=== PATIENT | male | born 1950 | race Caucasian/White ===

== ENCOUNTER → 2017-03-14 | Outpatient (CLI) | payer MEDICARE ==
[2017-03-14 12:25] LABS: Blood Urea Nitrogen 12 mg/dL (9-20); Non-African American GFR(MDRD) >60 (>60 ml/min/1.73 sqM)
== END | disposition home or self-care (01) ==
LOC: LABWHC1 11:44
PROVIDERS: ATTEND Orthopaedic Surgery Orthopaedic Surgery of the Spine
DX: Z01.812 Encounter for preprocedural laboratory examination (principal); N28.9 Disorder of kidney and ureter, unspecified
CPT/HCPCS: 36415; 82565; 84520

== ENCOUNTER → 2017-05-09 | Outpatient (CLI) | payer MEDICARE ==
[2017-05-09 14:39] LABS: EKG EKG PERFORMED
[2017-05-09 15:00] LABS: Basophils # (A) 0.1 k/uL (0-0.2); Basophils % (A) 1 %; CH 34.1; CHCM 34.2; Eosinophils # (A) 0.3 k/uL (0-0.7); Eosinophils % (A) 4 %; HCT 40.4 % (39.0-53.0); HDW 1.99; HGB 13.9 gm/dL (13.0-17.5); Luc # (Auto) 0.26; Luc % (Auto) 4; Lymphocytes # (A) 1.7 k/uL (1.0-4.8); Lymphocytes % (A) 26 %; MCH 34.5 pg (25.0-35.0); MCHC 34.5 g/dL (31.0-37.0); Mean Platelet Volume 6.6; Monocytes # (A) 0.6 k/uL (0-1.0); Monocytes % (A) 10 %; Neutrophils # (A) 3.8 k/uL (1.3-7.7); Neutrophils % (A) 57 %; RBC 4.04 m/uL (4.30-5.90); RDW 13.1 % (11.5-15.5); WBC 6.7 k/uL (3.8-10.6); WBC (Perox) 6.77
[2017-05-09 15:06] LABS: Appearance,Urine Clear (Clear); Bilirubin,Urine Negative (Negative); Glucose,Urine (UA) Negative (Negative); Ketones,Urine Negative (Negative); Leukocyte Esterase,Urine Negative (Negative); Nitrite,Urine Negative (Negative); PH, Urine 6.5 (5.0-8.0); Protein,Urine Negative (Negative); UA Billing (MACRO vs. MICRO) CHEM; Urobilinogen,Urine <2.0 mg/dL (<2.0)
[2017-05-09 15:12] LABS: Partial Thromboplastin Time 22.6 sec (22.0-30.0); Prothrombin Time 10.3 sec (9.0-12.0)
[2017-05-09 15:15] LABS: Anion Gap 10 mmol/L; Blood Urea Nitrogen 14 mg/dL (9-20); Carbon Dioxide 25 mmol/L (22-30); Chloride 101 mmol/L (98-107); Glucose 90 mg/dL (74-99); Non-African American GFR(MDRD) >60 (>60 ml/min/1.73 sqM); Sodium 136 mmol/L (137-145)
--- NOTE | 2017-05-09 15:22 | XR ---
EXAMINATION TYPE: XR chest 2V DATE OF EXAM: 05/09/2017 COMPARISON: CT thorax dated 05/07/2016 HISTORY: Preoperative evaluation for back surgery. No history of heart or lung disease. TECHNIQUE: Frontal and lateral views of the chest are obtained. FINDINGS: There is no focal air space opacity, pleural effusion, or pneumothorax seen. The cardiac silhouette size is within normal limits. The osseous structures are intact. Partial visualization o f lumbar pedicular screws and fixation rods are noted. Degenerative changes of the thoracic spine are seen. IMPRESSION: No acute cardiopulmonary process.
== END | disposition home or self-care (01) ==
LOC: LABPAT 13:29
PROVIDERS: ATTEND Orthopaedic Surgery Orthopaedic Surgery of the Spine
DX: Z01.818 Encounter for other preprocedural examination (principal); M48.04 Spinal stenosis, thoracic region; Z79.01 Long term (current) use of anticoagulants; Z01.810 Encounter for preprocedural cardiovascular examination
CPT/HCPCS: 71020; 80048; 81003; 85025; 85610; 85730; 86850; 86900; 86901; 93005

== ENCOUNTER → 2023-02-22 | Outpatient (CLI) | payer MEDICARE ==
--- NOTE | 2023-02-22 12:38 | XR ---
EXAMINATION TYPE: XR lumbar spine 2 or 3V DATE OF EXAM: 02/22/2023 CLINICAL HISTORY: Low back pain TECHNIQUE: Weightbearing Frontal and lateral images of the lumbar spine are obtained. COMPARISON: Lumbar spine x-ray June 20, 2013 FINDINGS: There are 5 lumbar type vertebral bodies redemonstrated. Persistent posterior intrapedicul ar screws bilaterally from L1 through S1 levels. There are now bilateral rods and posterior supportin g ossification. Mild to moderate height loss at the L2 vertebral body level is redemonstrated otherwi se vertebral body heights are maintained. Multilevel disc calcification is now seen. There is moderat e disc space narrowing at L4-L5 level which is more prominent from prior. The superior right L1 screw appears to breach the superior L1 surface on current study. There is now some reversal of normal cur vature centered at L1-L2 disc space level. Moderate overlying arterial vascular calcification is now present. IMPRESSION: As above.
== END | disposition home or self-care (01) ==
LOC: RADXRMAIN 11:55
PROVIDERS: ATTEND Family Medicine
DX: M48.061 Spinal stenosis, lumbar region without neurogenic claudication (principal)
CPT/HCPCS: 72100

== ENCOUNTER → 2023-10-10 | Outpatient (CLI) | payer MEDICARE ==
[2023-10-10 16:09] LABS: HCT 35.7 % (39.6-50.0); HGB 12.1 g/dL (13.0-17.0); MCH 32.7 pg (27.0-32.0); MCHC 33.9 g/dL (32.0-37.0); MCV 96.5 FL (80.0-97.0); NRBC Per 100 WBC 0 X 10*3/uL (0.00-0.01); Platelet Count 212 X 10*3/uL (140-440); RDW 12.5 % (11.5-14.5)
[2023-10-10 16:11] LABS: Blood Urea Nitrogen 23.1 mg/dL (9.0-27.0); Carbon Dioxide 20.9 mmol/L (21.6-31.8); Chloride 102 mmol/L (96-109); Sodium 135 mmol/L (135-145)
== END | disposition home or self-care (01) ==
LOC: LABPAT 09:09
PROVIDERS: ATTEND Internal Medicine
DX: Z01.812 Encounter for preprocedural laboratory examination (principal); R06.02 Shortness of breath
CPT/HCPCS: 80051; 82565; 84520; 85027

== ENCOUNTER → 2023-10-11 | Day surgery (SDC) | payer MEDICARE ==
[~2023-10-11] MED LIST: ALPRAZolam 0.25 MG TAB PO PRN; ALPRAZolam 0.5 MG TAB PO PRN; ASPIRIN 325 MG TAB PO ONE; HEPARIN SODIUM 1,000 UN/ML (10ML VL) ONE; NITROGLYCERIN SL TABS 0.4 MG TAB SUBLINGUAL PRN; SODIUM CHLORIDE 0.9% 1,000 ML in EMPTY BAG 1 BAG IV SCH; VERAPAMIL 2.5 MG/ML 2 ML AMP ONE; fentaNYL (PF) 50 MCG/ML 2 ML AMP ONE
[2023-10-11] MEDS: SODIUM CHLORIDE 0.9% 1,000 ML IV ONE (08:40)
[2023-10-11 09:05] LABS: Basophils % (A) 0 %; Eosinophils # (A) 0.1 k/uL (0-0.7); Eosinophils % (A) 2 %; HCT 36.6 % (39.0-53.0); HGB 12.7 gm/dL (13.0-17.5); Lymphocytes # (A) 2.5 k/uL (1.0-4.8); Lymphocytes % (A) 33 %; MCHC 34.6 g/dL (31.0-37.0); MCV 95.4 fL (80.0-100.0); Monocytes # (A) 0.6 k/uL (0-1.0); Monocytes % (A) 8 %; Neutrophils % (A) 54 %; Platelet Count 202 k/uL (150-450); RBC 3.84 m/uL (4.30-5.90); RDW 12.3 % (11.5-15.5); WBC 7.5 k/uL (3.8-10.6)
[2023-10-11 09:16] VITALS: RESP 16; TEMP 98.4
[2023-10-11 09:37] LABS: African American GFR (CKD) 75 (>60 ml/min/1.73 sqM); Anion Gap 9 mmol/L; Blood Urea Nitrogen 19 mg/dL (9-20); Calcium 9.8 mg/dL (8.4-10.2); Carbon Dioxide 20 mmol/L (22-30); Chloride 104 mmol/L (98-107); Glucose 95 mg/dL (74-99); Non-African American GFR(CKD) 64 (>60 ml/min/1.73 sqM); Sodium 133 mmol/L (137-145)
[2023-10-11] MEDS: fentaNYL (PF) 50 MCG/ML 2 ML AMP IVP ONE (10:11)
[2023-10-11] MEDS: MIDAZOLAM 2 MG/2 ML VIAL IVP ONE (10:11)
[2023-10-11] MEDS: VERAPAMIL SYRINGE (5 MG/10 ML) INTRAARTER ONE (10:13)
[2023-10-11] MEDS: LIDOCAINE 1% INJ 10MG/ML (30 ML VIAL-PF) SQ ONE (10:13)
[2023-10-11] MEDS: HEPARIN SODIUM 1,000 UN/ML (10ML VL) IV ONE (10:16)
[2023-10-11] MEDS: IOPAMIDOL-370 100ML BTL INJ ONE (10:29)
--- NOTE | 2023-10-11 11:03 | P.CARDCATH ---
Description of Procedure: PROCEDURES PERFORMED: Left heart catheterization, bilateral coronary angiography, ultrasound guided arterial access, iFR of the LAD and diagonal 1 INDICATION: Abnormal stress test CONSENT:I have discussed the risks, benefits and alternative therapies for the above-mentioned procedure and for both sedation/analgesia as well as necessary blood product administration, if indicated, as they pertain to this patient. The patient has indicated understanding and acceptance of the risks and procedures discussed. PROCEDURE: After the risks, benefits and alternatives of the above mentioned procedure explained in detail with the patient, informed consent was obtained. Patient was taken to the catheterization lab and prepped and draped in usual fashion. Ultrasound guidance was used to assess for arterial access. 1% lidocaine was used to anesthetize the right radial artery. A 6-Yi sheath was placed in the right radial artery using modified Seldinger technique and ultrasound guidance. Left coronary angiography was performed with a 5-Yi JL 3.5 catheter and right coronary angiography was performed with a 5-Yi FR5 c atheter in various views. The decision was made to perform iFR of the LAD and diagonal given this was a big artery supplying large territory of myocardium. Using the JL 3.5 catheter, a 0.014 pressure wire was advanced in the left main and normalize. This was then advanced distal to LAD. First recording had significant drift and was repeated. iFR was performed of the LAD and diagonal branch and was normal at 1.0 and 0.96 respectively. A 5-Yi FR5 catheter was inserted into the left ventricle and pressure measurements were obtained. The right radial sheath was removed and a TR band wa s placed with hemostasis achieved. The patient tolerated the procedure well. Patient was transported back to the post catheterization holding area in stable condition. Conscious Sedation: Patient was monitored under the direct supervision of myself for conscious sedation using Versed and fentanyl for a total duration of 15 minutes HEMODYNAMICS: Aorta: 130/71 LV: 137/5, LVEDP 7 SELECTIVE CORONARY ARTERIOGRAPHY: LEFT MAIN: The left main is a large caliber vessel which bifurcates into the LAD and circumflex. There is no significant stenosis. LEFT ANTERIOR DESCENDING CORONARY ARTERY: LAD is a large caliber vessel which wraps around to the apex. There is a mid LAD 50-60% stenosis after the takeoff of a small to moderate caliber diagonal 1 branch. Otherwise there are mild luminal irregularities. Diagonal 1 branch has a proximal 40% stenosis. LEFT CIRCUMFLEX CORONARY ARTERY: Left circumflex is a large caliber vessel with mild luminal irregularities. The circumflex gives off the PDA and is the dominant vessel. RIGHT CORONARY ARTERY: The right coronary artery is a small caliber vessel which gives off an acute marginal and is nondominant vessel. There is no significant stenosis. FINAL IMPRESSION: 1. Mild to moderate CAD as described above including 50-60% mid LAD stenosis, 40% diagonal 1 stenosis and mild luminal irregularities of the circumflex 2. iFR LAD and diagonal branch normal 3. Normal left sided filling pressures PLAN: 1. Aggressive risk factor modification per most recent ACC/AHA guidelines. 2. Follow-up in the office in 1-2 weeks.
[2023-10-11 12:35] VITALS: BP 129/59
[2023-10-11 14:04] VITALS: PULSE 69
== END ==
LOC: CATHCVL 08:36
PROVIDERS: ATTEND Internal Medicine
DX: I25.10 Atherosclerotic heart disease of native coronary artery without angina pectoris (principal); I10 Essential (primary) hypertension; E78.5 Hyperlipidemia, unspecified; F10.90 Alcohol use, unspecified, uncomplicated; I44.7 Left bundle-branch block, unspecified; M43.26 Fusion of spine, lumbar region; Z82.49 Family history of ischemic heart disease and other diseases of the circulatory system; Z87.891 Personal history of nicotine dependence; Z86.16 Personal history of COVID-19; Z79.899 Other long term (current) drug therapy
CPT/HCPCS: 93458; 93799; 76937; 80048; 85025; C1769 ×2; C1894; J2250; J2001; J3010; J1644; Q9967

== ENCOUNTER → 2023-11-08 | Outpatient (CLI) | payer MEDICARE ==
--- NOTE | 2023-11-08 14:40 | XR ---
EXAMINATION TYPE: XR chest 2V DATE OF EXAM: 11/08/2023 COMPARISON: 05/09/2017. HISTORY: Preop evaluation. TECHNIQUE: Frontal and lateral views of the chest are obtained. IMPRESSION: There are new patchy interstitial changes seen to the mid to lower lungs bilaterally which could be c hronic versus acute inflammation or infection. Clinical correlation is recommended and short-term fol low-up is recommended to assess for resolution. The cardiac silhouette and pulmonary vessels are within normal limits.
== END | disposition home or self-care (01) ==
LOC: RADXRMAIN 11:56
PROVIDERS: ATTEND Family Medicine
DX: Z01.818 Encounter for other preprocedural examination (principal); J84.89 Other specified interstitial pulmonary diseases; R06.2 Wheezing
CPT/HCPCS: 71046

== ENCOUNTER → 2024-05-14 | Outpatient (CLI) | payer MEDICARE ==
--- NOTE | 2024-05-14 13:10 | XR ---
EXAMINATION TYPE: XR hand complete RT DATE OF EXAM: 05/14/2024 COMPARISON: NONE HISTORY: 74-year-old male M7 9.643, right hand vein TECHNIQUE: 3 views FINDINGS: Scattered mild arthritic change such as at the first CMC joint and throughout the DIP joint s. There is osteopenia. No marginal erosions are seen. Some thin linear retained radiopaque foreign b laxmi material was radial aspect of the middle finger versus debris on the patient's skin surface. Scat tered vascular calcifications. Similar subtle finding along the ulnar aspect of the hand. See the AP view for annotations. No acute fracture, subluxation, dislocation. Osteopenia. Some nonspecific calci fication along the radial sided fourth PIP joint. IMPRESSION: 1. Scattered mild osteoarthritic change. 2. Osteopenia. No acute osseous abnormality seen. 3. Radial sided calcification along the fourth PIP joint. If there is localizing pain, findings may r epresent a calcific capsulitis. 4. Fine linear foreign body density projecting along the radial sided soft tissues of the middle fing er and also along the ulnar-sided hand soft tissues. Either retained foreign body material versus reggie ris on the patient's skin surface. [facility], , 05/14/2024 1:08 PM
== END | disposition home or self-care (01) ==
LOC: RADXRMAIN 12:28
PROVIDERS: ATTEND Family Medicine
DX: M79.643 Pain in unspecified hand